=== PATIENT | female | born 1980 | race Two or more races ===

== ENCOUNTER 2017-08-03 08:34 | Outpatient (CLI) | payer OTHER ==
[~2017-08-03 08:34] MED LIST: KETO10TA2 PO; MIRALAX510 GM PO; MOTRIN800 MG PO
== END 2017-08-03 10:29 | disposition home or self-care (01) ==
LOC: SONOGRAMA 08:34
DX: N92.1 Excessive and frequent menstruation with irregular cycle (principal); N84.0 Polyp of corpus uteri

== ENCOUNTER 2020-09-15 10:32 | Outpatient (CLI) | payer OTHER ==
[2020-09-16] MEDS ORDERED: SYNTHROID50 MCG PO (10:15)
[2020-09-16] MEDS ORDERED: PRENATAL TABLE1 EAC3 PO (10:15)
== END 2020-09-15 11:38 | disposition home or self-care (01) ==
LOC: NST 10:32
PROVIDERS: ATTEND Obstetrics & Gynecology Maternal & Fetal Medicine
DX: Z34.82 Encounter for supervision of other normal pregnancy, second trimester (principal)

== ENCOUNTER 2020-09-16 04:47 | Inpatient (IN) | payer OTHER ==
[~2020-09-16] VITALS: Ht 162.6 cm; Wt 68.9 kg
[2020-09-16] MEDS ORDERED: PRENATAL TABLE1 EAC3 PO (10:15)
[2020-09-16] MEDS ORDERED: SYNTHROID50 MCG PO (10:15)
== END 2020-09-20 12:56 | disposition home or self-care (01) | DRG 833 ==
LOC: OB/GYN 04:47 → LDR 04:47 → OB/GYN 09-17 08:28
PROVIDERS: ADMIT Obstetrics & Gynecology Maternal & Fetal Medicine; ATTEND Obstetrics & Gynecology Maternal & Fetal Medicine
PROC: BW30Y0Z Magnetic Resonance Imaging (MRI) of Abdomen using Other Contrast, Unenhanced and Enhanced (ICD-10-PCS; principal; 2020-09-16)
PROC: 4A1HXFZ Monitoring of Products of Conception, Cardiac Rhythm, External Approach (ICD-10-PCS; 2020-09-16)
DX: O99.891 Other specified diseases and conditions complicating pregnancy (principal); R10.32 Left lower quadrant pain; R11.2 Nausea with vomiting, unspecified; Z3A.24 24 weeks gestation of pregnancy
CPT/HCPCS: 74185

== ENCOUNTER 2020-12-15 13:00 | Inpatient (IN) | payer OTHER ==
[~2020-12-15] VITALS: Ht 162.6 cm; Wt 77.6 kg
[~2020-12-15 13:00] MED LIST changes: +PRENATAL TABLE1 EAC3 PO; +SYNTHROID50 MCG PO
[2021-01-05] MEDS ORDERED: SYNTHROID75 MCG PO (02:05)
[2021-01-05] MEDS ORDERED: IRON325 MG PO (02:05)
== END 2021-01-07 10:59 | disposition home or self-care (01) | DRG 807 ==
LOC: OB/GYN 12-30 13:00 → LDR 01-05 01:44 → SURG-SUITE 01-05 01:44
PROVIDERS: ADMIT Obstetrics & Gynecology Maternal & Fetal Medicine; ATTEND Obstetrics & Gynecology Maternal & Fetal Medicine
PROC: 10E0XZZ Delivery of Products of Conception, External Approach (ICD-10-PCS; principal; 2021-01-05)
PROC: 4A1HXFZ Monitoring of Products of Conception, Cardiac Rhythm, External Approach (ICD-10-PCS; 2021-01-05)
DX: O48.0 Post-term pregnancy (principal); Z37.0 Single live birth; O13.4 Gestational [pregnancy-induced] hypertension without significant proteinuria, complicating childbirth; O99.824 Streptococcus B carrier state complicating childbirth; O99.284 Endocrine, nutritional and metabolic diseases complicating childbirth; E03.9 Hypothyroidism, unspecified; Z3A.40 40 weeks gestation of pregnancy; Z20.822 Contact with and (suspected) exposure to COVID-19

== ENCOUNTER 2020-12-24 14:26 | Outpatient (CLI) | payer OTHER | END 2020-12-24 15:46 | disposition home or self-care (01) | LOC: NST 14:26 | PROVIDERS: ATTEND Obstetrics & Gynecology Maternal & Fetal Medicine | DX: Z34.83 Encounter for supervision of other normal pregnancy, third trimester (principal) ==

== ENCOUNTER 2020-12-29 14:53 | Outpatient (CLI) | payer OTHER | END 2020-12-29 16:11 | disposition home or self-care (01) | LOC: NST 14:53 | PROVIDERS: ATTEND Obstetrics & Gynecology | DX: Z34.83 Encounter for supervision of other normal pregnancy, third trimester (principal) ==

== ENCOUNTER → 2021-01-01 | Outpatient (CLI) | payer OTHER ==
[~2021-01-01] MED LIST changes: +IRON325 MG PO; +SYNTHROID75 MCG PO
== END | disposition home or self-care (01) ==
LOC: NST 16:01
PROVIDERS: ATTEND Obstetrics & Gynecology Maternal & Fetal Medicine
DX: O48.0 Post-term pregnancy (principal)

== ENCOUNTER 2021-01-04 10:25 | Outpatient (CLI) | payer OTHER ==
[~2021-01-04 10:25] MED LIST changes: -IRON325 MG PO; -SYNTHROID75 MCG PO
[2021-01-05] MEDS ORDERED: SYNTHROID75 MCG PO (02:05)
[2021-01-05] MEDS ORDERED: IRON325 MG PO (02:05)
== END 2021-01-04 11:06 | disposition home or self-care (01) ==
LOC: NST 10:25
PROVIDERS: ATTEND Obstetrics & Gynecology Maternal & Fetal Medicine
DX: O48.0 Post-term pregnancy (principal)

== ENCOUNTER 2023-02-24 09:51 | Outpatient (CLI) | payer OTHER ==
[~2023-02-24 09:51] MED LIST changes: +IRON325 MG PO; +SYNTHROID75 MCG PO
== END 2023-02-24 10:02 | disposition home or self-care (01) ==
LOC: RAD 09:51
DX: M54.2 Cervicalgia (principal)

== ENCOUNTER 2023-04-01 06:13 | Emergency (ER) | payer OTHER ==
[~2023-04-01] VITALS: Ht 162.6 cm; Wt 62.1 kg
== END 2023-04-01 13:54 | disposition home or self-care (01) ==
LOC: ER 06:13
PROVIDERS: Emergency Medicine
DX: K29.70 Gastritis, unspecified, without bleeding (principal); Z88.0 Allergy status to penicillin

== ENCOUNTER 2023-04-25 12:09 | Outpatient (CLI) | payer OTHER | END 2023-04-25 12:20 | disposition home or self-care (01) | LOC: SONOGRAMA 12:09 | DX: E04.2 Nontoxic multinodular goiter (principal) ==